=== PATIENT | male | born 1960 | race Caucasian/White ===

== ENCOUNTER → 2020-07-08 | Day surgery (SDC) | payer MEDICARE ==
[~2020-07-08] MED LIST: BUSPAR5 MG PO; CLONAZEPAM 1MG T1 MG PO; HYDROCODON-ACE1 EAC2 PO; KEFLEX250 MG PO; LISINOPRIL-HCT1 EAC1 PO; VENLAFAXINE HCL75 M1 PO
[2020-07-08 07:11] LABS: HCT 41.1 % (42.0-52.0); MCH 30.4 pg (25.0-31.0); MCHC 34.1 g/dL (32.0-36.0); MCV 89.2 fL (78.0-100.0); RBC 4.61 M/uL (4.70-6.00); RDW 13.5 % (11.5-14.0)
[2020-07-08 07:27] LABS: BUN/CREAT RATIO (CALC) 18.3 RATIO; CREATININE 1.09 mg/dL (0.67-1.17); POTASSIUM 4.2 mmol/L (3.5-5.1)
== END | disposition home or self-care (01) ==
LOC: FAS 05:45
PROVIDERS: Legal Medicine
DX: M70.21 Olecranon bursitis, right elbow (principal); M25.721 Osteophyte, right elbow; G47.30 Sleep apnea, unspecified; F41.9 Anxiety disorder, unspecified; I10 Essential (primary) hypertension; Z20.822 Contact with and (suspected) exposure to COVID-19; Z99.89 Dependence on other enabling machines and devices; Z98.1 Arthrodesis status; Z98.890 Other specified postprocedural states
CPT/HCPCS: 36415; 80048; 93005; J0690; J1100; J1170; J1885; J2250; J2405; J2704; J2795; J3010; J7120